=== PATIENT | female | born 1990 | race Caucasian/White ===

== ENCOUNTER 2021-08-02 23:30 | Inpatient (IN) | payer BC ==
[2021-08-02] MEDS ORDERED: Oxytocin/Lactated Ringers 10 UNIT/1,000 ML BAG IV SCH ×2 (23:45)
[2021-08-02] MEDS ORDERED: Lactated Ringers 1,000 ML IV SCH (23:45)
[2021-08-02] MEDS ORDERED: Nalbuphine 10 MG/1 ML Vial IVPUSH PRN (23:52)
[2021-08-02] MEDS ORDERED: Sodium Chloride 0.9% 10 ML Syringe FLUSH PRN (23:52)
[2021-08-02] MEDS ORDERED: Ampicillin 2 GM in Sodium Chloride 0.9% 100 ML IV ONE (23:52)
[2021-08-02] MEDS ORDERED: Ondansetron 4 MG/2 ML SDV IVPUSH PRN (23:52)
[2021-08-02] MEDS ORDERED: Calcium Carbonate 500 MG Tab.Chew PO PRN (23:52)
[2021-08-03] MEDS: Ampicillin 1 GM in Sodium Chloride 0.9% 100 ML IV SCH ×3 (04:12→12:04)
--- NOTE | 2021-08-03 07:23 | PCM.LDHP ---
L&D History of Present Illness - General Date of Service: 08/03/21 Admit Problem/Dx: Patient Status Order with Admit Dx/Problem 08/02/21 23:33 Patient Status [ADT] Routine 08/02/21 23:52 Patient Status [ADT] Routine Admission Diagnosis/Problem Admission Diagnosis/Problem Source of Information: Patient History Limitations: Reports: No Limitations - History of Present Illness Introduction:: Patient is a 31 y/o at 40 3/7 wks currently who presented overnight with worsening contractions. Has been about 5 cm throughout admission. Still feeling contractions - Related Data Allergies/Adverse Reactions: Allergies Allergy/AdvReac Type Severity Reaction Status Date / Time azithromycin Allergy Hives Verified 08/02/21 23:42 Home Medications: Home Meds Docosahexaenoic Acid [ Dha] 1 cap PO ASDIRECTED 08/03/21 [History] Past Medical History [employer] History: Reports: : 2 Para: 1 LMP (Approximate): - Past Surgical History HEENT Surgical History: Reports: Oral Surgery (tooth extraction), Tonsillectomy Female Surgical History: Reports: Breast Implant Social & Family History - Family History Family Medical History: No Pertinent Family History - Tobacco Use Tobacco Use Status *Q: Never Tobacco User - Alcohol Use Alcohol Use History: No - Recreational Drug Use Recreational Drug Use: No H&P Review of Systems - Review of Systems: Review Of Systems: See Below General: Reports: No Symptoms Pulmonary: Reports: No Symptoms Cardiovascular: Reports: No Symptoms Gastrointestinal: Reports: Abdominal Pain (contractions ) Genitourinary: Reports: No Symptoms Musculoskeletal: Reports: No Symptoms Neurological: Reports: No Symptoms L&D Exam - Exam Exam: See Below - Vital Signs Vital Signs: Last Vital Signs Temp 37.0 C 08/03/21 00:37 Pulse 84 08/03/21 00:37 Resp 18 08/03/21 00:37 BP 127/72 08/03/21 00:37 Pulse Ox 100 08/03/21 00:37 Weight: 96.615 kg - OB Specific Contraction Intensity: Mild to Moderate Movement: Active Heart Tones: Present Heart Tones per Min: 130 Heart Rate (FHR) Variability: Moderate (6-25 bpm) Presentation: Vertex - Dahl Score Dahl Score Cervix Position: Midposition Dahl Score Consistency: Soft Dahl Score Effacement: 31-50% Dahl Score Dilation: > 5 cm Dahl Score 's Station: -2 Dahl Score Total: 8 - Exam General: Alert, Oriented, Cooperative Lungs: Clear to Auscultation, Normal Respiratory Effort Cardiovascular: Regular Rate, Regular Rhythm GI/Abdominal Exam: Soft, Non-Tender Genitourinary: Normal external exam Extremities: Normal Inspection - Patient Data Lab Results Last 24 hrs: Laboratory Results - last 24 hr 08/02/21 08/02/21 08/02/21 Range/Units 23:55 23:59 23:59 WBC 11.15 H (3.98-10.04) K/mm3 RBC 4.42 (3.98-5.22) M/mm3 Hgb 11.9 (11.2-15.7) gm/dl Hct 37.1 (34.1-44.9) % MCV 83.9 (79.4-94.8) fl MCH 26.9 (25.6-32.2) pg MCHC 32.1 L (32.2-35.5) g/dl RDW Std Deviation 38.5 (36.4-46.3) fL Plt Count 206 (182-369) K/mm3 MPV 10.9 (9.4-12.3) fl Neut % (Auto) 67.2 (34.0-71.1) % Lymph % (Auto) 19.6 (19.3-51.7) % [place] % (Auto) 11.7 (4.7-12.5) % Eos % (Auto) 0.9 (0.7-5.8) Baso % (Auto) 0.2 (0.1-1.2) % Neut # (Auto) 7.49 H (1.56-6.13) K/mm3 Lymph # (Auto) 2.19 (1.18-3.74) K/mm3 [place] # (Auto) 1.31 H (0.24-0.36) K/mm3 Eos # (Auto) 0.10 (0.04-0.36) K/mm3 Baso # (Auto) 0.02 (0.01-0.08) K/mm3 SARS-CoV-2 RNA (PETRONA) Negative (NEGATIVE) Blood Type O POSITIVE Gel Antibody Screen Negative Result Diagrams: 08/02/21 23:59 - Problem List (1) 40 weeks gestation of SNOMED Code(s): 31536200 ICD Code: Z3A.40 - 40 WEEKS GESTATION OF Status: Acute Current Visit: Yes (2) GBS (group B Streptococcus carrier), +RV culture, currently SNOMED Code(s): 2169552295246, 375818115, 9756792297447 ICD Code: O99.820 - STREPTOCOCCUS B CARRIER STATE COMPLICATING Status: Acute Current Visit: Yes Problem List Initiated/Reviewed/Updated: Yes Orders Last 24hrs: Active Orders 24 hr Category Date Time Status Patient Status [ADT] Routine ADT 08/02/21 23:52 Active Activity as Tolerated [RC] PFP Care 08/02/21 23:52 Active Communication Order [RC] ASDIRECTED Care 08/02/21 23:52 Active Heart Tones [RC] ASDIRECTED Care 08/02/21 23:53 Active Notify Provider [RC] PFP Care 08/02/21 23:52 Active Notify Provider [RC] PRN Care 08/02/21 23:52 Active Peripheral IV Care [RC] Q4HR Care 08/02/21 23:53 Active Pump Management, Intrathecal [RC] ASDIRECTED Care 08/02/21 23:53 Active Vital Signs [RC] PER UNIT ROUTINE Care 08/02/21 23:33 Active Regular Diet [DIET] Diet 08/02/21 Breakfast Active PATIENT RETYPE [BBK] Routine Lab 08/03/21 01:13 Ordered RAPID PLASMA REAGIN,RPR [CHEM] Routine Lab 08/02/21 23:59 Received Ampicillin 1 gm Med 08/03/21 04:00 Active Sodium Chloride 0.9% [Normal Saline] 100 ml IV Q4H Calcium Carbonate [Tums] Med 08/02/21 23:52 Active 1,000 mg PO Q2H PRN Lactated Ringers [Ringers, Lactated] 1,000 ml Med 08/02/21 23:45 Active IV ASDIRECTED Nalbuphine [Nubain] Med 08/02/21 23:52 Active 10 mg IVPUSH Q2H PRN Ondansetron [Zofran] Med 08/02/21 23:52 Active 4 mg IVPUSH Q4H PRN Oxytocin/Lactated Ringers [Pitocin in LR 10 Units/1,000 Med 08/02/21 23:45 Active ML] 10 unit in 1,000 ml IV .CONTINUOUS Oxytocin/Lactated Ringers [Pitocin in LR 10 Units/1,000 Med 08/02/21 23:45 Active ML] 10 unit in 1,000 ml IV TITRATE Sodium Chloride 0.9% [Saline Flush] Med 08/02/21 23:52 Active 10 ml FLUSH ASDIRECTED PRN Electronic Heart Tones Ext w TOCO [WOMSER] Oth 08/02/21 23:52 Ordered Routine Electronic Heart Tones Internal [WOMSER] Per Unit Ot 08/02/21 23:52 Ordered Routine Peripheral IV Insertion Adult [OM.PC] Routine Oth 08/02/21 23:52 Ordered Resuscitation Status Routine Resus Stat 08/02/21 23:33 Ordered Medication Orders Calcium Carbonate/Glycine (Calcium Carbonate 500 Mg Tab.Chew) 1,000 mg PO Q2H PRN PRN Reason: Indigestion Lactated Ringer's (Ringers, Lactated) 1,000 mls @ 100 mls/hr IV ASDIRECTED CORTNEY Last Admin: 08/03/21 01:03 Dose: 100 mls/hr Documented by: BINDAMA Ampicillin Sodium 1 gm/ Sodium (Chloride) 100 mls @ 200 mls/hr IV Q4H [facility] Last Admin: 08/03/21 04:12 Dose: 200 mls/hr Documented by: BINDAMA Oxytocin/Lactated Ringer's (Pitocin In Lr 10 Units/1,000 Ml) 10 unit in 1,000 mls @ 500 mls/hr IV .CONTINUOUS CORTNEY Oxytocin/Lactated Ringer's (Pitocin In Lr 10 Units/1,000 Ml) 10 unit in 1,000 mls @ 12 mls/hr IV TITRATE CORTNEY; Protocol Nalbuphine HCl (Nalbuphine 10 Mg/1 Ml Vial) 10 mg IVPUSH Q2H PRN PRN Reason: Pain Ondansetron HCl (Ondansetron 4 Mg/2 Ml Sdv) 4 mg IVPUSH Q4H PRN PRN Reason: Nausea/Vomiting Sodium Chloride (Sodium Chloride 0.9% 10 Ml Syringe) 10 ml FLUSH ASDIRECTED PRN PRN Reason: Keep Vein Open Assessment/Plan Comment:: Took over care of patient at 0700 this am * Lab done previously * GBS positive, on Ampicillin * AROM performed. Pitocin if needed * Pain management per patient preference * Anticipate
[2021-08-03] MEDS ORDERED: Lidocaine 1% 50 ML MDV ONE (13:14)
--- NOTE | 2021-08-03 13:34 | PCM.DEL ---
L & D Note - General Info Date of Service: 08/03/21 - Delivery Note Labor: Augmented by ARM, Augmented by Oxytocin Delivery Outcome: Livebirth Infant Delivery Method: Spontaneous Vaginal Delivery-Single Delivery Mode: Spontaneous Presentation: Left Occiput Anterior (RAYA) Nuchal Cord: None Anesthesia Type: None Amniotic Fluid Description: Clear Laceration: None Placenta: Intact, Spontaneous Cord: 3 Vessels Estimated Blood Loss: 100 Resuscitation Needed: Yes Dike: Bulb Syringe, Stimulated, Warmed, Heidrick Used, Warmer Used Delivery Comments (Free Text/Narrative):: Patient found to be complete and began pushing. With maternal pushing effort head delivered from RAYA presentation. No nuchal cord present. With gentle downward traction the shoulders and body delivered. placed on maternal abdomen. Cord clamped and cut. Cord blood obtained. Placenta allowed time to separate and expelled intact. Inspection of perineum with no lacerations. - General Info Date of Service: 08/03/21 - Patient Data Vitals - Most Recent: Last Vital Signs Temp 37.0 C 08/03/21 00:37 Pulse 84 08/03/21 00:37 Resp 18 08/03/21 00:37 BP 127/72 08/03/21 00:37 Pulse Ox 100 08/03/21 00:37 Weight - Most Recent: 96.615 kg - Problem List & Annotations (1) 40 weeks gestation of SNOMED Code(s): 20833921 Code(s): Z3A.40 - 40 WEEKS GESTATION OF Status: Acute Current Visit: Yes (2) GBS (group B Streptococcus carrier), +RV culture, currently SNOMED Code(s): 7240331845198, 596462129, 6734672805719 Code(s): O99.820 - STREPTOCOCCUS B CARRIER STATE COMPLICATING Status: Acute Current Visit: Yes (3) Vaginal delivery SNOMED Code(s): 496602571 Code(s): O80 - ENCOUNTER FOR FULL-TERM UNCOMPLICATED DELIVERY Status: Acute Current Visit: Yes - Problem List Review Problem List Initiated/Reviewed/Updated: Yes - Assessment Assessment:: PPD#0 - Plan Plan:: * Routine cares * Breast feeding * Discharge home in 1-2 days
[2021-08-03] MEDS ORDERED: Docusate Sodium 100 MG Cap PO PRN (14:27)
[2021-08-03] MEDS ORDERED: Acetaminophen 325 MG Tab PO PRN (14:27)
[2021-08-03] MEDS ORDERED: Witch Hazel Medicated Pads 40/Jar TOP PRN (14:27)
[2021-08-03] MEDS ORDERED: Ibuprofen 600 MG Tab PO PRN (14:27)
[2021-08-03] MEDS ORDERED: Benzocaine/Menthol 20%-0.5% Spray 78 GM Cannister TOP PRN (14:27)
--- NOTE | 2021-08-04 06:33 | PCM.PNPP ---
- General Info Date of Service: 08/04/21 Functional Status: Reports: Pain Controlled, Tolerating Diet, Ambulating, Urinating - Review of Systems General: Reports: No Symptoms Pulmonary: Reports: No Symptoms Cardiovascular: Reports: No Symptoms Gastrointestinal: Reports: No Symptoms Genitourinary: Reports: No Symptoms Musculoskeletal: Reports: No Symptoms - General Info Date of Service: 08/04/21 - Patient Data Vital Signs - Most Recent: Last Vital Signs Temp 36.7 C 08/04/21 03:23 Pulse 70 08/04/21 03:23 Resp 16 08/04/21 03:23 BP 107/58 L 08/04/21 03:23 Pulse Ox 96 08/04/21 03:23 Weight - Most Recent: 96.615 kg I&O - Last 24 Hours: Intake & Output 08/03/21 08/03/21 08/04/21 14:59 22:59 06:59 Intake Total 295 Output Total 112 Balance 295 -112 Lab Results - Last 24 Hours: Laboratory Results - last 24 hr 08/02/21 Range/Units 23:59 RPR Non-reactive (NONREACTIVE) Med Orders - Current: Current Medications Acetaminophen (Acetaminophen 325 Mg Tab) 650 mg PO Q4H PRN PRN Reason: mild pain or fever Benzocaine/Menthol (Benzocaine/Menthol 20%-0.5% [place] 78 Gm Cannister) 0 gm TOP ASDIRECTED PRN PRN Reason: Perineal Comfort Measure Last Admin: 08/03/21 15:24 Dose: 1 can Documented by: Docusate Sodium (Docusate Sodium 100 Mg Cap) 100 mg PO BID PRN PRN Reason: Constipation Ibuprofen (Ibuprofen 600 Mg Tab) 600 mg PO Q6H PRN PRN Reason: Mild pain or fever Witch Hortensia (Witch Hortensia Medicated Pads 40/Jar) 1 pad TOP ASDIRECTED PRN PRN Reason: Perineal Comfort Measure Last Admin: 08/03/21 15:24 Dose: 1 tub Documented by: Discontinued Medications Calcium Carbonate/Glycine (Calcium Carbonate 500 Mg Tab.Chew) 1,000 mg PO Q2H PRN PRN Reason: Indigestion Lactated Ringer's (Ringers, Lactated) 1,000 mls @ 100 mls/hr IV ASDIRECTED CORTNEY Last Admin: 08/03/21 01:03 Dose: 100 mls/hr Documented by: Ampicillin Sodium 2 gm/ Sodium (Chloride) 100 mls @ 200 mls/hr IV ONETIME ONE Stop: 08/03/21 00:21 Last Admin: 08/03/21 00:15 Dose: 200 mls/hr Documented by: Ampicillin Sodium 1 gm/ Sodium (Chloride) 100 mls @ 200 mls/hr IV Q4H CORTNEY Last Admin: 08/03/21 12:04 Dose: 200 mls/hr Documented by: Oxytocin/Lactated Ringer's (Pitocin In Lr 10 Units/1,000 Ml) 10 unit in 1,000 mls @ 500 mls/hr IV .CONTINUOUS CORTNEY Oxytocin/Lactated Ringer's (Pitocin In Lr 10 Units/1,000 Ml) 10 unit in 1,000 mls @ 12 mls/hr IV TITRATE CORTNEY; Protocol Last Titration: 08/03/21 13:25 Dose: 166.5 munits/min, 999 mls/hr Documented by: Lidocaine HCl (Lidocaine 1% 50 Ml Mdv) Confirm Administered Dose 50 ml .ROUTE .[facility] ONE Stop: 08/03/21 13:15 Nalbuphine HCl (Nalbuphine 10 Mg/1 Ml Vial) 10 mg IVPUSH Q2H PRN PRN Reason: Pain Ondansetron HCl (Ondansetron 4 Mg/2 Ml Sdv) 4 mg IVPUSH Q4H PRN PRN Reason: Nausea/Vomiting Sodium Chloride (Sodium Chloride 0.9% 10 Ml Syringe) 10 ml FLUSH ASDIRECTED PRN PRN Reason: Keep Vein Open - Infant Interaction Infant Disposition, : in Room with Family Infant Interaction: Holding Feeding: Attempted ; Nursed Fair/Poor Support Person: - Recovery Exam Fundal Tone: Firm Fundal Level: At Umbilicus Fundal Placement: Midline Lochia Amount: Scant, Small Lochia Color: Rubra/Red Perineum Description: Intact, Minimal Bruising/Swelling Episiotomy/Laceration: Approximated Bladder Status: Voiding Urinary Elimination: Voided - Exam General: Alert, Oriented, Cooperative GI/Abdominal Exam: Soft, Non-Tender - Problem List & Annotations (1) 40 weeks gestation of SNOMED Code(s): 71288318 Code(s): Z3A.40 - 40 WEEKS GESTATION OF Status: Acute Current Visit: Yes (2) GBS (group B Streptococcus carrier), +RV culture, currently SNOMED Code(s): 0179628247402, 857465535, 5035002541551 Code(s): O99.820 - STREPTOCOCCUS B CARRIER STATE COMPLICATING Status: Acute Current Visit: Yes (3) Vaginal delivery SNOMED Code(s): 191526925 Code(s): O80 - ENCOUNTER FOR FULL-TERM UNCOMPLICATED DELIVERY Status: Acute Current Visit: Yes - Problem List Review Problem List Initiated/Reviewed/Updated: Yes - My Orders Last 24 Hours: My Active Orders 08/03/21 14:27 Acetaminophen [TylenoL] 650 mg PO Q4H PRN Benzocaine/Menthol [Dermoplast Pain Relief 20%-0.5% [place]] See Dose Instructions TOP ASDIRECTED PRN Docusate Sodium [Colace] 100 mg PO BID PRN Ibuprofen [Motrin] 600 mg PO Q6H PRN witch Hortensia [Tucks] 1 pad TOP ASDIRECTED PRN Heat Therapy [OM.PC] PRN 08/03/21 14:27 Activity as Tolerated [RC] PER UNIT ROUTINE Vital Signs [RC] 03,09,15,21 Assess Lochia [WOMSER] Per Unit Routine Assess Uterine Involution [WOMSER] Per Unit Routine Breast Pump [WOMSER] Per Unit Routine Ice Therapy [OM.PC] Per Unit Routine Perineal Care [OM.PC] Per Unit Routine Peripheral IV Discontinue [OM.PC] Routine Sitz Bath [OM.PC] Per Unit Routine 08/03/21 Dinner Regular Diet [DIET] 08/04/21 06:33 Ready for Discharge [RC] PER UNIT ROUTINE 08/04/21 14:27 Heat Therapy [OM.PC] PRN - Assessment Assessment:: PPD#1 - Plan Plan:: * Routine cares * Breast feeding * Discharge home today
--- NOTE | 2021-08-04 06:33 | PCM.DCSUM1 ---
Discharge Summary - Discharge Data Discharge Date: 08/04/21 Discharge Disposition: Home, Self-Care 01 Condition: Good - Referral to Home Health Primary Care Physician: Qiana Gilbert MD - Discharge Diagnosis/Problem(s) (1) 40 weeks gestation of SNOMED Code(s): 49913321 ICD Code: Z3A.40 - 40 WEEKS GESTATION OF Status: Acute Current Visit: Yes (2) GBS (group B Streptococcus carrier), +RV culture, currently SNOMED Code(s): 3410502176392, 059986077, 8418775926219 ICD Code: O99.820 - STREPTOCOCCUS B CARRIER STATE COMPLICATING Status: Acute Current Visit: Yes (3) Vaginal delivery SNOMED Code(s): 141008957 ICD Code: O80 - ENCOUNTER FOR FULL-TERM UNCOMPLICATED DELIVERY Status: Acute Current Visit: Yes - Patient Summary/Data Complications: None Consults: None Recommended Follow-up Testing/Procedures: Follow up in 3 weeks for check Hospital Course: 31 y/o at 40 3/7 wks who presented in early labor. Augmented with AROM and pitocin. Progressed well and underwent an uncomplicated . See delivery note. did well and was discharged home on PPD#1 - Patient Instructions Diet: Regular Diet as Tolerated Activity: As Tolerated Activity, Other: Pelvic rest for 6 weeks Driving: May Drive Today Showering/Bathing: May Shower Showering/Bathing, Other: May Bathe Notify Provider of: Fever, Increased Pain, Swelling and Redness, Drainage, Nausea and/or Vomiting - Discharge Plan *PRESCRIPTION DRUG MONITORING PROGRAM REVIEWED*: No *COPY OF PRESCRIPTION DRUG MONITORING REPORT IN PATIENT [place]: No Home Medications: Home Meds Docusate Sodium [Colace] 100 mg PO BID PRN cap 08/03/21 [Rx] Ibuprofen [Motrin] 600 mg PO Q6H PRN tablet 08/03/21 [Rx] Referrals: Qiana Gilbert MD [Primary Care Provider] - (3 weeks for check ) - Discharge Summary/Plan Comment DC Time >30 min.: No Total # of Minutes for Discharge Time: 15 - Patient Data Vitals - Most Recent: Last Vital Signs Temp 36.7 C 08/04/21 03:23 Pulse 70 08/04/21 03:23 Resp 16 08/04/21 03:23 BP 107/58 L 08/04/21 03:23 Pulse Ox 96 08/04/21 03:23 Weight - Most Recent: 96.615 kg I&O - Last 24 hours: Intake & Output 08/03/21 08/03/21 08/04/21 14:59 22:59 06:59 Intake Total 295 Output Total 112 Balance 295 -112 Lab Results - Last 24 hrs: Laboratory Results - last 24 hr 08/02/21 Range/Units 23:59 RPR Non-reactive (NONREACTIVE) Med Orders - Current: Current Medications Acetaminophen (Acetaminophen 325 Mg Tab) 650 mg PO Q4H PRN PRN Reason: mild pain or fever Benzocaine/Menthol (Benzocaine/Menthol 20%-0.5% [place] 78 Gm Cannister) 0 gm TOP ASDIRECTED PRN PRN Reason: Perineal Comfort Measure Last Admin: 08/03/21 15:24 Dose: 1 can Documented by: Docusate Sodium (Docusate Sodium 100 Mg Cap) 100 mg PO BID PRN PRN Reason: Constipation Ibuprofen (Ibuprofen 600 Mg Tab) 600 mg PO Q6H PRN PRN Reason: Mild pain or fever Witch Raquel (Witch Raquel Medicated Pads 40/Jar) 1 pad TOP ASDIRECTED PRN PRN Reason: Perineal Comfort Measure Last Admin: 08/03/21 15:24 Dose: 1 tub Documented by: Discontinued Medications Calcium Carbonate/Glycine (Calcium Carbonate 500 Mg Tab.Chew) 1,000 mg PO Q2H PRN PRN Reason: Indigestion Lactated Ringer's (Ringers, Lactated) 1,000 mls @ 100 mls/hr IV ASDIRECTED [facility] Last Admin: 08/03/21 01:03 Dose: 100 mls/hr Documented by: Ampicillin Sodium 2 gm/ Sodium (Chloride) 100 mls @ 200 mls/hr IV ONETIME ONE Stop: 08/03/21 00:21 Last Admin: 08/03/21 00:15 Dose: 200 mls/hr Documented by: Ampicillin Sodium 1 gm/ Sodium (Chloride) 100 mls @ 200 mls/hr IV Q4H [facility] Last Admin: 08/03/21 12:04 Dose: 200 mls/hr Documented by: Oxytocin/Lactated Ringer's (Pitocin In Lr 10 Units/1,000 Ml) 10 unit in 1,000 mls @ 500 mls/hr IV .CONTINUOUS CORTNEY Oxytocin/Lactated Ringer's (Pitocin In Lr 10 Units/1,000 Ml) 10 unit in 1,000 mls @ 12 mls/hr IV TITRATE CORTNEY; Protocol Last Titration: 08/03/21 13:25 Dose: 166.5 munits/min, 999 mls/hr Documented by: Lidocaine HCl (Lidocaine 1% 50 Ml Mdv) Confirm Administered Dose 50 ml .ROUTE .[facility] ONE Stop: 08/03/21 13:15 Nalbuphine HCl (Nalbuphine 10 Mg/1 Ml Vial) 10 mg IVPUSH Q2H PRN PRN Reason: Pain Ondansetron HCl (Ondansetron 4 Mg/2 Ml Sdv) 4 mg IVPUSH Q4H PRN PRN Reason: Nausea/Vomiting Sodium Chloride (Sodium Chloride 0.9% 10 Ml Syringe) 10 ml FLUSH ASDIRECTED PRN PRN Reason: Keep Vein Open
== END 2021-08-04 15:00 | disposition home or self-care (01) | DRG 560 ==
LOC: JD.OBCHECK 23:30 → JD.OB 23:31 → JD.OBCHECK 23:51 → JD.OB 23:52 → OBSVTOIN 08-03 13:24 → JD.OB 08-03 13:25
PROVIDERS: ADMIT Obstetrics & Gynecology; ATTEND Obstetrics & Gynecology
PROC: 10E0XZZ Delivery of Products of Conception, External Approach (ICD-10-PCS; principal; 2021-08-03)
PROC: 10907ZC Drainage of Amniotic Fluid, Therapeutic from Products of Conception, Via Natural or Artificial Opening (ICD-10-PCS; 2021-08-03)
DX: O48.0 Post-term pregnancy (principal); Z37.0 Single live birth; O99.824 Streptococcus B carrier state complicating childbirth; Z20.822 Contact with and (suspected) exposure to COVID-19; Z3A.40 40 weeks gestation of pregnancy; Z88.1 Allergy status to other antibiotic agents
CPT/HCPCS: 36415; 59025; 59409; 85025; 86592; 86850; 86900; 86901; A9270-GY; J0290; J2590; J7120; U0002

== ENCOUNTER 2022-09-16 15:02 | Inpatient (IN) | payer BC ==
[2022-09-16] MEDS ORDERED: Nalbuphine HCl 10 MG/ 1ML Amp IVPUSH PRN (15:11)
[2022-09-16] MEDS ORDERED: Sodium Chloride 0.9% 10 ML Syringe FLUSH PRN (15:11)
[2022-09-16] MEDS ORDERED: Lidocaine 1% 50 ML MDV INJECT PRN (15:11)
[2022-09-16] MEDS ORDERED: Ondansetron 4 MG/2 ML SDV IVPUSH PRN (15:11)
[2022-09-16] MEDS ORDERED: Calcium Carbonate 500 MG Tab.Chew PO PRN (15:11)
[2022-09-16] MEDS ORDERED: Oxytocin/Lactated Ringers 10 UNIT/1,000 ML BAG IV SCH (15:15)
[2022-09-16] MEDS ORDERED: Lactated Ringers 1,000 ML IV SCH (15:15)
[2022-09-16] MEDS ORDERED: Oxytocin/Lactated Ringers 10 UNIT/1,000 ML BAG IV ONE (15:18)
[2022-09-16] MEDS ORDERED: Lactated Ringers 1,000 ML ONE (15:18)
[2022-09-16] MEDS ORDERED: Ibuprofen 600 MG Tab PO PRN (17:35)
[2022-09-16] MEDS ORDERED: Witch Hazel Medicated Pads 40/Jar TOP PRN (17:35)
[2022-09-16] MEDS ORDERED: Acetaminophen 325 MG Tab PO PRN (17:35)
[2022-09-16] MEDS ORDERED: Benzocaine/Menthol 20%-0.5% Spray 78 GM Cannister TOP PRN (17:35)
== END 2022-09-17 17:47 | disposition home or self-care (01) | DRG 560 ==
LOC: JD.OBCHECK 15:02 → JD.OB 15:03 → JD.OBCHECK 15:11 → OBSVTOIN 16:09 → JD.OB 16:10
PROVIDERS: ADMIT Obstetrics & Gynecology; ATTEND Obstetrics & Gynecology
PROC: 10E0XZZ Delivery of Products of Conception, External Approach (ICD-10-PCS; principal; 2022-09-16)
PROC: 10907ZC Drainage of Amniotic Fluid, Therapeutic from Products of Conception, Via Natural or Artificial Opening (ICD-10-PCS; 2022-09-16)
DX: O48.0 Post-term pregnancy (principal); Z37.0 Single live birth; Z3A.40 40 weeks gestation of pregnancy; Z88.1 Allergy status to other antibiotic agents
CPT/HCPCS: 36415; 59025; 59409; 85027; 86592; J2590; J7120